=== PATIENT | male | born 1950 | race Caucasian/White ===

== ENCOUNTER 2018-02-06 01:06 | Emergency (ER) | payer OTHER, MEDICAID ==
--- NOTE | 2018-02-06 01:39 | CPEKG ---
Heart Rate: 56 RR Interval: 1071 P-R Interval: 192 QRSD Interval: 104 QT Interval: 436 QTC Interval: 421 P [place]: -2 QRS [place]: -16 T Wave [place]: 48 EKG Severity - OTHERWISE NORMAL ECG - EKG Impression: SINUS RHYTHM EKG Impression: BORDERLINE LEFT AXIS DEVIATION Electronically Signed By: Nieves Mccloud 07-Feb-2018 03:23:51
--- NOTE | 2018-02-06 01:41 | EDPHY ---
H & P Stated Complaint: pos blood clot, SOB, weakness Time Seen by Provider: 02/06/18 01:13 HPI/ROS: HPI The patient presents with shortness of breath which has been intermittent for the last 1 week. This is making it difficult for him to complete routine tasks. He says things are taking him much longer to do than usual because he feels generally short of breath and weak. He also feels very fatigued. He was seen by his primary care doctor about 5 days ago and had an abnormal blood test , possibly D-dimer testing, however I cannot locate record in the computer. He was started on azithromycin as well for a cough that he was having. His cough is mostly improved but the remainder of his symptoms continue.. REVIEW OF SYSTEMS Constitutional: No fever, no chills. Eyes: No discharge. ENT: No sore throat. Cardiovascular: No chest pain, no palpitations. Respiratory: No cough, no shortness of breath. Gastrointestinal: No abdominal pain, no vomiting. Genitourinary: No hematuria. Musculoskeletal: No back pain. Skin: No rashes. Neurological: No headache. PMHx: GERD, hypertension, recent ankle pain and swelling thought to be related to Achilles tendon Soc Hx: Currently house sitting for a friend in [place] PHYSICAL General Appearance: Alert, no distress Eyes: Pupils equal and round no pallor or injection ENT, Mouth: Mucous membranes moist Respiratory: There are no retractions, lungs are clear to auscultation Cardiovascular: Regular rate and rhythm Gastrointestinal: Abdomen is soft and non-tender, no masses, bowel sounds normal Neurological: A&O, moves all extremities Skin: Warm and dry, no rashes Musculoskeletal: Neck is supple non tender Extremities: symmetrical, full range of motion Psychiatric: Patient is oriented X 3, there is no agitation Source: Patient Exam Limitations: No limitations - Personal History Current Tetanus Diphtheria and Acellular Pertussis (TDAP): Yes - Medical/Surgical History Hx Asthma: No Hx Chronic Respiratory Disease: No Hx Diabetes: No Hx Cardiac Disease: No Hx Renal Disease: No Hx Cirrhosis: No Hx Alcoholism: No Hx HIV/AIDS: No Hx Splenectomy or Spleen Trauma: No Other PMH: Gerd, hypertension sleep disorder, left shoulder surgeries, neck/ back problems - Social History Smoking Status: Never smoked Constitutional: Initial Vital Signs Temperature (C) 36.7 C 02/06/18 01:17 Heart Rate 70 02/06/18 01:17 Respiratory Rate 20 02/06/18 01:17 Blood Pressure 142/92 H 02/06/18 01:17 O2 Sat (%) 93 02/06/18 01:17 O2 Delivery Mode Room Air Allergies/Adverse Reactions: No Known Allergies Allergy (Unverified 02/06/18 01:12) Home Medications: Medication Instructions Recorded Ambien 02/06/18 Amlopine 02/06/18 Atorvastatin Calcium 02/06/18 HCTZ (*) 02/06/18 Protonix 02/06/18 Ranitidine HCl 02/06/18 traZODone 02/06/18 Medical Decision Making - Diagnostics EKG Interpretation: EKG: Complete interpretation has been separately recorded in the [employer] archive. Summary impression: Normal sinus rhythm Imaging Results: Chest x-ray one view shows no cardiomegaly, no infiltrate, interpreted by me, radiology interpretation is pending. Differential Diagnosis: 67-year-old male with past medical history of GERD, hypertension presents with intermittent shortness of breath and generalized fatigue for the last 1 week. On arrival here, vital signs are normal, physical exam is unremarkable. Differential diagnosis includes PE, anemia, electrolyte disturbance, renal failure, hypothyroidism. In the emergency department, labs were unremarkable including D-dimer and TSH. Chest x-ray and EKG were normal. The intermittent nature of his symptoms is somewhat reassuring in his case, however cause of his symptoms is not entirely clear. At this point, we have identified any serious pathology that would require admission to the hospital. He can be discharged home with ongoing workup with his primary care physician. - Data Points Laboratory Results: Laboratory Results 02/06/18 01:30 02/06/18 01:30 02/06/18 02/06/18 02/06/18 01:35 01:30 01:30 WBC RBC Hgb Hct MCV MCH MCHC RDW Plt Count MPV Neut % (Auto) Lymph % (Auto) [place] % (Auto) Eos % (Auto) Baso % (Auto) Nucleat RBC Rel Count Absolute Neuts (auto) Absolute Lymphs (auto) Absolute Monos (auto) Absolute Eos (auto) Absolute Basos (auto) Absolute Nucleated RBC Immature Gran % Immature Gran # D-Dimer 0.28 ug/mLFEU ug/mLFEU (0.00-0.50) Sodium 143 mEq/L mEq/L (135-145) Potassium 3.6 mEq/L mEq/L (3.3-5.0) Chloride 106 mEq/L mEq/L (97-110) Carbon Dioxide 24 mEq/l mEq/l (22-31) Anion Gap 13 mEq/L mEq/L (8-16) BUN 17 mg/dL mg/dL (7-23) Creatinine 0.8 mg/dL mg/dL (0.7-1.3) Estimated GFR > 60 Glucose 99 mg/dL mg/dL (70-100) Calcium 10.1 mg/dL mg/dL (8.5-10.4) POC Troponin I 0.01 ng/mL ng/mL (0.00-0.08) NT-Pro-B Natriuret Pep 141 pg/mL H pg/mL (0-125) TSH 2.220 uIU/mL uIU/mL (0.465-4.680) 02/06/18 01:30 WBC 9.73 10^3/uL H 10^3/uL (3.80-9.50) RBC 5.41 10^6/uL 10^6/uL (4.40-6.38) Hgb 16.0 g/dL g/dL (13.7-17.5) Hct 47.3 % % (40.0-51.0) MCV 87.4 fL fL (81.5-99.8) MCH 29.6 pg pg (27.9-34.1) MCHC 33.8 g/dL g/dL (32.4-36.7) RDW 13.6 % % (11.5-15.2) Plt Count 219 10^3/uL 10^3/uL (150-400) MPV 9.0 fL fL (8.7-11.7) Neut % (Auto) 65.0 % % (39.3-74.2) Lymph % (Auto) 22.6 % % (15.0-45.0) [place] % (Auto) 8.1 % % (4.5-13.0) Eos % (Auto) 3.5 % % (0.6-7.6) Baso % (Auto) 0.3 % % (0.3-1.7) Nucleat RBC Rel Count 0.0 % % (0.0-0.2) Absolute Neuts (auto) 6.32 10^3/uL 10^3/uL (1.70-6.50) Absolute Lymphs (auto) 2.20 10^3/uL 10^3/uL (1.00-3.00) Absolute Monos (auto) 0.79 10^3/uL 10^3/uL (0.30-0.80) Absolute Eos (auto) 0.34 10^3/uL 10^3/uL (0.03-0.40) Absolute Basos (auto) 0.03 10^3/uL 10^3/uL (0.02-0.10) Absolute Nucleated RBC 0.00 10^3/uL 10^3/uL (0-0.01) Immature Gran % 0.5 % % (0.0-1.1) Immature Gran # 0.05 10^3/uL 10^3/uL (0.00-0.10) D-Dimer Sodium Potassium Chloride Carbon Dioxide Anion Gap BUN Creatinine Estimated GFR Glucose Calcium POC Troponin I NT-Pro-B Natriuret Pep TSH Point of Care Test Results: Chemistry 02/06/18 01:35 POC Troponin I 0.01 ng/mL ng/mL (0.00-0.08) Departure - Departure Disposition: Home, Routine, Self-Care Clinical Impression: Shortness of breath, Fatigue Condition: Good Instructions: Dyspnea (ED) Additional Instructions: The cause of your symptoms is not entirely clear. We have not identified any pulmonary embolism, heart failure, problems with the electrolytes in her body, kidney failure, heart attack, abnormal heart beat. I would like for you to follow up with your primary care doctor for further testing. You should return to the emergency department if your worse in any way. Referrals: EZIO DAVIDSON [Other] - As per Instructions
[2018-02-06 01:42] LABS: PLATELET COUNT 219 10^3/uL (150-400)
[2018-02-06 03:05] VITALS: BP 123/78
== END 2018-02-06 03:05 | disposition home or self-care (01) ==
DX: R06.02 Shortness of breath (principal); R53.83 Other fatigue; I10 Essential (primary) hypertension
CPT/HCPCS: 84484-PO